=== PATIENT | male | born 1985 | race Caucasian/White ===

== ENCOUNTER 2022-12-02 22:37 | Inpatient (IN) | payer OTHER ==
[~2022-12-02] VITALS: Ht 188 cm; Wt 130.2 kg
[2022-12-02] MEDS ORDERED: CLON0.5T4 PO (22:55)
[2022-12-02] MEDS ORDERED: CITA40TA11 PO (22:55)
[2022-12-02] MEDS ORDERED: ALBU8.5H8 IH (22:55)
--- NOTE | 2022-12-02 22:55 | NUR ---
seen and examined by
[2022-12-02 23:36] LABS: MEAN CORPUSCULAR HEMOGLOBIN 27.8 uug (23.8-33.4); MEAN CORPUSCULAR VOLUME 85.1 fL (73.0-96.2); PLATELET COUNT (AUTO) 290 K/uL (152-348)
[2022-12-03] VITALS (19 sets, daily range): BP systolic 98–159; BP diastolic 57–103
[2022-12-03] MEDS ORDERED: VANCOMYCIN 1G/D5W 200 ML PIGGYBACK IV ONE
[2022-12-03] MEDS ORDERED: PIPERACILLIN/TAZOBACTAM/D5W 50 ML IV ONE (00:06)
[2022-12-03] MEDS ORDERED: VANCOMYCIN IV 200 ML ONE (00:07)
[2022-12-03 00:37] LABS: CARBON DIOXIDE 32 mmol/L (21-32); CHLORIDE 102 mmol/L (98-107); CREATININE 1.2 mg/dL (0.6-1.3); GLUCOSE 151 mg/dL (74-106); POTASSIUM 3.4 mmol/L (3.5-5.1); UREA NITROGEN, BLOOD 15 mg/dL (7-18)
[2022-12-03 00:45] LABS: ALANINE AMINOTRANSFERASE 50 U/L (16-63); ALKALINE PHOSPHATASE 87 U/L (50-136); ASPARTATE AMINOTRANSFERASE 59 U/L (15-37); BILIRUBIN,DIRECT 0.2 mg/dL (0.0-0.2); BILIRUBIN,TOTAL 0.7 mg/dL (0.2-1.0); TOTAL PROTEIN, SERUM 6.7 g/dL (6.4-8.2)
[2022-12-03] MEDS ORDERED: MAGNESIUM HYDROXIDE 30 ML LIQUID UDC PO PRN (00:45)
[2022-12-03] MEDS ORDERED: CLONAZEPAM 0.5 MG TABLET PO PRN (00:45)
[2022-12-03] MEDS ORDERED: ACETAMINOPHEN 325 MG TABLET PO PRN (00:45)
[2022-12-03] MEDS ORDERED: ONDANSETRON 4 MG/2 ML VIAL IV PRN (00:45)
[2022-12-03] MEDS ORDERED: REMEDY ESSENTIAL ZINC PASTE 113 GM TP PRN (00:45)
--- NOTE | 2022-12-03 01:00 | NUR ---
Pt. to ccu ACCOMPANIED BY ED PRIMARY NURSE Radha. eNDORSED BY PHONE. PT. AMBULATED FROM STRETCHER TO BED W/O INCIDENT. COMPLETE INITIAL ASSESSMENT RENDERED. PLACED ON CERAMIC PRODUCTS SALES ENGINEER AND DEP[ICTS SINUS RHYTHM. PT. ACCLIMATED TO CCU. MONITORED FOR ACUTE DISTRESS.
[2022-12-03 01:15] LABS: *BILIRUBIN,URIN NEGATIVE (NEGATIVE); *BLOOD, URINE NEGATIVE (NEGATIVE); *CLARITY,URINE CLEAR (CLEAR); *COLOR,URINE YELLOW (YELLOW); *KETONES,URINE NEGATIVE (NEGATIVE); *UROBILINOGEN,URINE 0.2 E.U./dl (NORMAL); LEUKOCYTE ESTERASE ,URINE NEGATIVE (NEGATIVE); NITRITE, URINE NEGATIVE (NEGATIVE); PH,URINE 6.5 (5.0-8.0); UGLUCOSE NEGATIVE (NEGATIVE)
[2022-12-03] MEDS ORDERED: ENOXAPARIN SODIUM 40 MG/0.4 ML DISP.SYRIN SQ ONE ×2 (01:15→03:45)
[2022-12-03 01:39] LABS: ABG BASE EXCESS 2.6 mmol/L; ABG HCO3 26.4 mmol/L; ABG PH 7.459 (7.350-7.450); ABG PO2 56.7 mmHg (75.0-100.0); ABG SITE LEFT RADIAL; ABG TOTAL HEMOGLOBIN 14.8 G/dL (13.5-18.0); MetHb 0.4 % (0.0-1.5); O2Hb 88.5 % (94.0-97.0); VENT MODE HF - Aquinox
--- NOTE | 2022-12-03 01:52 | NUR ---
PATIENT PLACE ON HIGH FLOW @ 100% @ 20L/M IN ER, @ 23:20- SAT 89-90%, THEN ADDED NRB MASK , PT SAT 95%, AWAKE AND ALERT,THEN RT TRANSPORT TO CCU 5, WITH NRB MASK ON, THEN PLACED BACK ON HIGH FLOW 100%, ABG TAKEN, LOW PO2 57, ABG REPORTED TO FLORENCIA Jett, THEN ADDED NRB MASK ON AFTER ABG, SAT 95% WITH HIGH FLOW 100%, WILL MONITOR CLOSELY .Willard MARSHALL REPORTING CONSULTANT Addendum: 12/03/22 at 0156 by SHANNA MARSHALL RT Amended: Links added.
[2022-12-03 02:04] LABS: *AMPHETAMINE, URINE NEGATIVE (NEGATIVE); *CANNABINOID, URINE NEGATIVE (NEGATIVE); *COCCAINE, URINE NEGATIVE (NEGATIVE); *PHENCYCLIDINE SCREEN,URINE NEGATIVE (NEGATIVE)
[2022-12-03] MEDS ORDERED: IPRATROPIUM BROMIDE 0.5 MG/2.5 ML NEBU NEB PRN (02:15)
[2022-12-03] MEDS ORDERED: ALBUTEROL SULFATE 2.5 MG/ 0.5 ML NEBU NEB PRN (02:15)
[2022-12-03] MEDS: IV NS 1000 ML 1,000 ML IV PRN ×2 (03:41→18:59)
[2022-12-03] MEDS ORDERED: PIPERACILLIN SODIUM/TAZOBACTAM 3.375 G in IV DEXTROSE 5% 50 ML IV ONE ×4 (06:00→12:00)
--- NOTE | 2022-12-03 06:15 | NUR ---
pHARMACY NOTIFIED THAT ZOSYN SCHEDULED FOR 6AM IS STILL NOT AVAULABLE. COURT MESSENGER INCCU AND SAID TO CALL TO PHARMACY AND THAT SHE WOULLD NOT BE BRINGING TO CCU AT THIS TIME. I PLACED CALL TO PHARMACY AND WAS TOLD THAT NURSING CLINICAL TRANSPLANT COORDINATOR WILL BE BRINGING TOCCU. I THEN CALLED NURSING CLINICAL TRANSPLANT COORDINATOR GILBERT SERRANO AND SHE SAID SHE COULD BRING AT THIS TIME.
--- NOTE | 2022-12-03 06:55 | NUR ---
AIRLINE FLIGHT ATTENDANT NOW DROPPED OFF ZOSYN THAT WAS DUE AT 6:00AM. REQUESTED TIME RESCHEDULE FROM PHARMACY BUT THEY SAID NO. pT. CALLED CAR REPAIRER HELPER AT 7:00 AM AND SAID i THINK I F---KED UP. WALKING INTO ROOM PT. HAS PULLED OUT PRIMARY IV, REMOVED ALL OF HIS CARDIAC LEADS AND TAKEN OFF HIS BP CUFF. HE SAID HE WANTED TO GO TO BATHROOM BUT DID NOT CALL FOR ASSISTANCE UNTIL HE HAD REMOVED ALL MEDICAL EQUIPMENT. PRESSURE DRSG APPLIED TO RIGHT HAND. IV RESUMED TO LEFT AC. PT. GIVEN PORTABLE COMMODE. ENDORSED TO ONCOMING RN AFTER ASSISTING BACK TO BED.
--- NOTE | 2022-12-03 08:00 | NUR ---
Dr Garcia saw patient and educated him about disease process. He also said that the pt can get small amounts of fluid to drink
[2022-12-03] MEDS: CITALOPRAM 20 MG TABLET PO SCH (09:13)
[2022-12-03] MEDS: PANTOPRAZOLE SODIUM 40 MG VIAL IV SCH (09:13)
--- NOTE | 2022-12-03 09:30 | NUR ---
Dr Moore saw the pt and explained the disease process and the need to stay on the oxygen mask and high flow nasal canula and the risks of noncompliance.
[2022-12-03] MEDS: VANCOMYCIN IV 2,000 MG in IV DEXTROSE 5% 500 ML IV SCH ×2 (10:01→20:42)
--- NOTE | 2022-12-03 10:42 | NUR ---
Social Work consult was requested for a patient in the CCU for substance abuse resources. Patient is a 37-year-old male admitted to the hospital for acute respiratory distress syndrome. Patient presents with depressed mood and congruent affect. Patient is alert and oriented X4. Patient states his primary contact agent is his girlfriend, Jesusita Ortiz ([phone]) and they have a good relationship. Patient states he lives alone at [address] [place] [address]. Patient states he has a history of substance abuse and states he accidently overdosed on oxytocin on Tuesday. MARTELL provided the patient resources for medication assisted treatment from [address] [address] ([phone]), [address] [address] ([phone]), [place] [address] ([phone]). Patient was appreciative of the resources and appears ambivalent about treatment. Patient states he is open to going to a treatment center and his girlfriend found a treatment center that he is going to go to but is unsure of the name of the place. SW placed a copy of the resources in the patients chart. Patient states he has a history of depression and anxiety and is seeing a therapist, Angeli once a week. Patient states he does not have a psychiatrist and is not taking any medication. Patient denies suicidal or homicidal ideation. Patient states his plan for discharge is for his girlfriend, Jesusita Ortiz ([phone]) to pick him up and bring him home to [address] [place] [address] [address] [address].
[2022-12-03] MEDS ORDERED: POTASSIUM CHLORIDE 20 MEQ POWDER PACKET GT ONE (10:45)
[2022-12-03] MEDS: ALBUTEROL SULFATE 2.5 MG/3 ML NEBU NEB SCH ×3 (11:54→19:36)
[2022-12-03] MEDS: IPRATROPIUM BROMIDE 0.5 MG/2.5 ML NEBU NEB SCH ×3 (11:54→19:36)
[2022-12-03] MEDS ORDERED: IOHEXOL 350 100 ML INFUS..BTL ONE (12:50)
[2022-12-03] MEDS ORDERED: IV NORMAL SALINE 250 ML IV ONE (12:50)
[2022-12-03] MEDS ORDERED: SWABABLE VALVE TRANSFER SET EA MC ONE (12:50)
[2022-12-03] MEDS: PIPERACILLIN SODIUM/TAZOBACTAM 3.375 G in IV DEXTROSE 5% 50 ML IV SCH (17:15)
[2022-12-03] MEDS: LORAZEPAM 2 MG/1 ML VIAL IV PRN (20:26)
--- NOTE | 2022-12-03 20:27 | NUR ---
Pt has s/s of anxiety. Seen by Dr Pablo. clears order for Ativan as ordered. Will administer diane at this time.
[2022-12-03] MEDS: ENOXAPARIN SODIUM 40 MG/0.4 ML DISP.SYRIN SQ SCH (21:00)
--- NOTE | 2022-12-03 22:18 | NUR ---
PATIENT RECEIVED DOCE ON 12/03/22 AT O600. UNABLE TO PROCEED WITH DOSE AT THIS TIME.
--- NOTE | 2022-12-03 22:19 | NUR ---
PATIENT HAS UNCOMTROLLED LOOSE STOOL AND WAS INCONTINENT. SPILLED ON FLOOR PRIOR TO GETTING ON THE COMMODE. MD INFORMED. OBTAINED ORDER TO COLLECT NEXT BM FOR CDIFF.
--- NOTE | 2022-12-03 22:21 | NUR ---
PT IS ASLEE. VS 131/82, HR 75, 95%, RR 41.
[2022-12-04] VITALS (24 sets, daily range): BP systolic 55–145; BP diastolic 55–94
[2022-12-04] MEDS: PIPERACILLIN SODIUM/TAZOBACTAM 3.375 G in IV DEXTROSE 5% 50 ML IV SCH ×5 (00:19→23:12)
--- NOTE | 2022-12-04 04:00 | NUR ---
Pt is arousable. No complapbt. Temp 99.6. Pt remains tacchypnic. NRB mask in place.
[2022-12-04 05:27] LABS: HEMATOCRIT 38.9 % (36.7-47.1); MEAN CORPUSCULAR HEMOGLOBIN 27.7 uug (23.8-33.4); MEAN CORPUSCULAR VOLUME 85.4 fL (73.0-96.2); PLATELET COUNT (AUTO) 209 K/uL (152-348)
[2022-12-04 05:38] LABS: BILIRUBIN,DIRECT 0.1 mg/dL (0.0-0.2); BILIRUBIN,TOTAL 0.8 mg/dL (0.2-1.0); MAGNESIUM 1.9 mg/dL (1.8-2.4); PHOSPHOROUS 3.9 mg/dL (2.5-4.9); POTASSIUM 3.5 mmol/L (3.5-5.1); TOTAL PROTEIN, SERUM 5.8 g/dL (6.4-8.2)
[2022-12-04] MEDS ORDERED: ENOXAPARIN SODIUM 40 MG/0.4 ML DISP.SYRIN SQ SCH (06:00)
[2022-12-04 06:02] LABS: ABG HCO3 26.1 mmol/L; ABG PCO2 35.2 mmHg (35.0-45.0); ABG PH 7.488 (7.350-7.450); ABG PO2 58.7 mmHg (75.0-100.0); ABG SITE RIGHT RADIAL; ABG TOTAL HEMOGLOBIN 13.8 G/dL (13.5-18.0); COHb 0.9 % (0.5-1.5); MetHb 0.2 % (0.0-1.5); O2Hb 90.8 % (94.0-97.0)
[2022-12-04 06:04] LABS: THYROID STIMULATING HORMONE 0.59 mIU/mL (0.358-3.740)
[2022-12-04] MEDS: VANCOMYCIN IV 2,000 MG in IV DEXTROSE 5% 500 ML IV SCH ×2 (06:06→17:54)
--- NOTE | 2022-12-04 07:24 | NUR ---
END OF SHIFT REPORT GIVEN TO MORNING NURSE. PT REMAINS ON NRB IN PLACE.
[2022-12-04] MEDS: PANTOPRAZOLE SODIUM 40 MG VIAL IV SCH (08:16)
[2022-12-04] MEDS: CITALOPRAM 20 MG TABLET PO SCH (08:16)
[2022-12-04] MEDS: ALBUTEROL SULFATE 2.5 MG/3 ML NEBU NEB SCH ×4 (08:53→20:18)
[2022-12-04] MEDS: IPRATROPIUM BROMIDE 0.5 MG/2.5 ML NEBU NEB SCH ×4 (08:53→20:18)
[2022-12-04] MEDS: FUROSEMIDE 20 MG/2 ML VIAL IV SCH ×4 (11:00→21:06)
--- NOTE | 2022-12-04 16:00 | NUR ---
Dr Pablo saw the patient and explaine the disease process and plan of care. CTA ordered. Dr Pablo informed that pt is too unstable to be transferred to CT as the Oxygen flow rate has had to be increased today to maintain saturation for the patient. Will get test completed as soon as patient is stable. supervisor type disk quality control notified.
[2022-12-04] MEDS: ENOXAPARIN SODIUM 40 MG/0.4 ML DISP.SYRIN SQ SCH (21:08)
[2022-12-04] MEDS ORDERED: SWABABLE VALVE TRANSFER SET EA MC ONE (21:37)
[2022-12-04] MEDS ORDERED: IOHEXOL 350 100 ML INFUS..BTL ONE (21:37)
[2022-12-04] MEDS ORDERED: IV NORMAL SALINE 250 ML IV ONE (21:37)
--- NOTE | 2022-12-04 22:00 | NUR ---
Pt for STAT: CTA with ACLS available & back without episode.
[2022-12-05] VITALS (24 sets, daily range): BP systolic 100–149; BP diastolic 38–84
[2022-12-05] MEDS ORDERED: IV NORMAL SALINE 250 ML IV PRN (00:01)
[2022-12-05] MEDS: VANCOMYCIN IV 2,000 MG in IV DEXTROSE 5% 500 ML IV SCH ×2 (04:15→15:59)
[2022-12-05 05:23] LABS: HEMATOCRIT 42.7 % (36.7-47.1); MEAN CORPUSCULAR HEMOGLOBIN 27.5 uug (23.8-33.4); MEAN CORPUSCULAR VOLUME 84.8 fL (73.0-96.2); PLATELET COUNT (AUTO) 223 K/uL (152-348)
[2022-12-05 05:31] LABS: BILIRUBIN,TOTAL 0.8 mg/dL (0.2-1.0); CREATININE 1.2 mg/dL (0.6-1.3); MAGNESIUM 1.7 mg/dL (1.8-2.4); PHOSPHOROUS 5.3 mg/dL (2.5-4.9); POTASSIUM 3.3 mmol/L (3.5-5.1); TOTAL PROTEIN, SERUM 6.6 g/dL (6.4-8.2)
[2022-12-05] MEDS: PIPERACILLIN SODIUM/TAZOBACTAM 3.375 G in IV DEXTROSE 5% 50 ML IV SCH ×4 (06:23→23:25)
[2022-12-05] MEDS: ALBUTEROL SULFATE 2.5 MG/3 ML NEBU NEB SCH ×4 (07:25→19:28)
[2022-12-05] MEDS: IPRATROPIUM BROMIDE 0.5 MG/2.5 ML NEBU NEB SCH ×4 (07:25→19:28)
[2022-12-05] MEDS: PANTOPRAZOLE SODIUM 40 MG TABLET.DR PO SCH (07:25)
[2022-12-05] MEDS: CITALOPRAM 20 MG TABLET PO SCH (08:05)
[2022-12-05] MEDS ORDERED: POTASSIUM CHLORIDE 20 MEQ TAB.PRT.SR PO ONE (09:00)
[2022-12-05] MEDS ORDERED: MAGNESIUM SULFATE/D5W 100 ML IV SCH (09:00)
[2022-12-05] MEDS ORDERED: FUROSEMIDE 20 MG/2 ML VIAL IV ONE ×2 (11:45→17:00)
[2022-12-05] MEDS: MAGNESIUM SULFATE/D5W 100 ML IV SCH ×3 (12:08→13:23)
[2022-12-05] MEDS: POTASSIUM CHLORIDE 50 ML IV SCH ×4 (12:08→15:40)
--- NOTE | 2022-12-05 20:00 | NUR ---
Pt. report received from Hemanth SERRANO. Complete initial assessment rendered. violin restorer intact depicting SR when patient isnt moving about in bed or lying on his cardiac lines. Pt. is calm and cooperative. Flat affect. Makes needs known. Continues on HIFlow NC 25 Liters 65%. Sp02 monitored. See flowsheet. Monitored for acute distress.
[2022-12-05] MEDS: ENOXAPARIN SODIUM 40 MG/0.4 ML DISP.SYRIN SQ SCH (21:47)
[2022-12-06] VITALS (23 sets, daily range): BP systolic 100–146; BP diastolic 43–79
[2022-12-06] MEDS: LORAZEPAM 2 MG/1 ML VIAL IV PRN ×2 (00:32→22:09)
--- NOTE | 2022-12-06 00:59 | NUR ---
Right midline drsg changed. Pt. has bent midline cathether from frequent bending of arm and laying on right arm. Catheter unable to flush. Repositioned and drsg. reapplied, sterile technique implemented. Good flush and good blood aspiration. Pt. has been reminded many times to not lay on his IV lines , tubing and medical equipment on his bed. Every attempt made for his comfort moving tubing an lines away from his body surface.
[2022-12-06] MEDS: VANCOMYCIN IV 2,000 MG in IV DEXTROSE 5% 500 ML IV SCH ×2 (03:45→22:09)
--- NOTE | 2022-12-06 04:35 | NUR ---
Pt. observed sleeping. Repositioned lines and tubing as supervisor dyer unable at times to depict accurate vital signs. Sp02 currently at 95%.
[2022-12-06 05:18] LABS: HEMATOCRIT 42.3 % (36.7-47.1); MEAN CORPUSCULAR HEMOGLOBIN 27.7 uug (23.8-33.4); MEAN CORPUSCULAR VOLUME 85.3 fL (73.0-96.2); PLATELET COUNT (AUTO) 233 K/uL (152-348)
[2022-12-06 05:35] LABS: CREATININE 1.3 mg/dL (0.6-1.3); MAGNESIUM 2.2 mg/dL (1.8-2.4); PHOSPHOROUS 4.3 mg/dL (2.5-4.9); POTASSIUM 3.6 mmol/L (3.5-5.1)
[2022-12-06] MEDS: PIPERACILLIN SODIUM/TAZOBACTAM 3.375 G in IV DEXTROSE 5% 50 ML IV SCH ×4 (06:03→23:22)
[2022-12-06] MEDS: PANTOPRAZOLE SODIUM 40 MG TABLET.DR PO SCH (06:26)
--- NOTE | 2022-12-06 07:21 | NUR ---
Verbal endorsement to Vianey SERRANO. VSS no acute distress.
[2022-12-06] MEDS: ALBUTEROL SULFATE 2.5 MG/3 ML NEBU NEB SCH ×4 (07:55→19:22)
[2022-12-06] MEDS: IPRATROPIUM BROMIDE 0.5 MG/2.5 ML NEBU NEB SCH ×4 (07:55→19:22)
[2022-12-06] MEDS: CITALOPRAM 20 MG TABLET PO SCH (09:02)
[2022-12-06] MEDS ORDERED: FUROSEMIDE 40 MG/4 ML VIAL IV ONE (09:15)
[2022-12-06] MEDS ORDERED: POTASSIUM CHLORIDE 20 MEQ POWDER PACKET PO ONE (09:30)
[2022-12-06] MEDS: ENOXAPARIN SODIUM 40 MG/0.4 ML DISP.SYRIN SQ SCH (22:08)
[2022-12-07] VITALS (9 sets, daily range): BP systolic 97–141; BP diastolic 42–75
[2022-12-07 05:07] LABS: HEMATOCRIT 42.1 % (36.7-47.1); MEAN CORPUSCULAR HEMOGLOBIN 27.3 uug (23.8-33.4); MEAN CORPUSCULAR VOLUME 85.4 fL (73.0-96.2); PLATELET COUNT (AUTO) 234 K/uL (152-348)
[2022-12-07 05:21] LABS: BILIRUBIN,TOTAL 0.9 mg/dL (0.2-1.0); CREATININE 1.4 mg/dL (0.6-1.3); MAGNESIUM 2.3 mg/dL (1.8-2.4); POTASSIUM 3.9 mmol/L (3.5-5.1); TOTAL PROTEIN, SERUM 6.6 g/dL (6.4-8.2)
[2022-12-07] MEDS: PANTOPRAZOLE SODIUM 40 MG TABLET.DR PO SCH (06:16)
[2022-12-07] MEDS: PIPERACILLIN SODIUM/TAZOBACTAM 3.375 G in IV DEXTROSE 5% 50 ML IV SCH ×2 (06:16→12:29)
--- NOTE | 2022-12-07 07:30 | NUR ---
REPORT GIVEN TO ZACH EWING
[2022-12-07] MEDS: IPRATROPIUM BROMIDE 0.5 MG/2.5 ML NEBU NEB SCH ×4 (07:35→15:30)
[2022-12-07] MEDS: ALBUTEROL SULFATE 2.5 MG/3 ML NEBU NEB SCH ×4 (07:35→15:30)
--- NOTE | 2022-12-07 08:21 | NUR ---
DIET CHANGED TO REGILAR PATIENT IS NOW ON 5 LITERS NASAL CANNULA, PLAN TO TRANSFER TO [facility]. CALLED AND INFORMED TECHNICAL SUPPORT ASSOCIATE TO LET THEM KNOW.
[2022-12-07] MEDS ORDERED: FUROSEMIDE 40 MG/4 ML VIAL IV ONE (09:00)
[2022-12-07] MEDS: CITALOPRAM 20 MG TABLET PO SCH (09:18)
[2022-12-07] MEDS: VANCOMYCIN IV 2,000 MG in IV DEXTROSE 5% 500 ML IV SCH (12:21)
--- NOTE | 2022-12-07 13:36 | NUR ---
called director of casework department to called MD to enter discharge order
--- NOTE | 2022-12-07 15:18 | NUR ---
DCD instructions documents given to pt. to be signed pt. left room [id number]. vitals stable, taken to [facility] by paramedics. Family at bedside.
--- NOTE | 2022-12-07 15:30 | NUR ---
education given about respiratory failure and drug overdose before discharge. patient is alert x4 able to make needs known. vitals stable on 4 liters nasal cannula transfer to [facility] via ambulance, , report given to He SERRANO called mother Liza to let her know all orders noted Addendum: 12/07/22 at 1603 by REGISTRY [facility] RN2 RN patient is transferred with midline right upper arm, dressing clean and dry.
== END 2022-12-07 19:11 | disposition short-term general hospital (02) | DRG 871 ==
LOC: ER 22:37 → CCU 12-03 00:33
PROVIDERS: ADMIT Nurse Practitioner Acute Care; ATTEND Nurse Practitioner Acute Care
PROC: 05HD33Z Insertion of Infusion Device into Right Cephalic Vein, Percutaneous Approach (ICD-10-PCS; principal; 2022-12-04)
DX: A41.9 Sepsis, unspecified organism (principal); G92.8 Other toxic encephalopathy; J80 Acute respiratory distress syndrome; I50.31 Acute diastolic (congestive) heart failure; J18.9 Pneumonia, unspecified organism; J69.0 Pneumonitis due to inhalation of food and vomit; I21.A1 Myocardial infarction type 2; E44.0 Moderate protein-calorie malnutrition; R65.20 Severe sepsis without septic shock; T40.2X1D Poisoning by other opioids, accidental (unintentional), subsequent encounter; J45.909 Unspecified asthma, uncomplicated; F41.9 Anxiety disorder, unspecified; F19.10 Other psychoactive substance abuse, uncomplicated; F11.10 Opioid abuse, uncomplicated; E11.65 Type 2 diabetes mellitus with hyperglycemia; Z20.822 Contact with and (suspected) exposure to COVID-19; E87.6 Hypokalemia; E66.01 Morbid (severe) obesity due to excess calories; Z68.36 Body mass index [BMI] 36.0-36.9, adult; I51.7 Cardiomegaly; Z86.59 Personal history of other mental and behavioral disorders; I77.810 Thoracic aortic ectasia
CPT/HCPCS: 36415; 36600; 71045; 71275; 82803; 83605; 83735; 84100; 84443; 84484; 85025; 85730; 87040; 93005; 93307; 94640; 94664; 99082-TC; A4663; C9113; G0378; J1650; J1940; J2060; J2543; J3370; J3475; J3480; J3590; J7040; J7060; Q9967